=== PATIENT | female | born 1945 | race Asian ===

== ENCOUNTER 2019-08-11 20:50 | Inpatient (IN) | payer OTHER, MEDICAID ==
[~2019-08-11] VITALS: Ht 142.2 cm; Wt 34.9 kg
--- NOTE | 2019-08-11 20:51 | NUR ---
Note fidleia in ED - 08/11/19 at 2113 by JULIOCESAR Placed in room 5 . Placed on monitor car operator, blood pressure machine and pulse oximeter. To gown for exam. Side rails up. Report given to JOSE LLAMAS.
[2019-08-11 20:58] VITALS: BP_SYST 101
--- NOTE | 2019-08-11 20:58 | NUR ---
Placed in room 5 . Placed on drafter electronic, blood pressure machine and pulse oximeter. To gown for exam. Side rails up.
--- NOTE | 2019-08-11 20:59 | NUR ---
patient is greek speaking per EMT report. patient has no labored breathing and lungs are CTA bilaterally. patient shows no signs of current distress. patient has a stable gate. 3 IV attempts. patients current LOC is x1.
--- NOTE | 2019-08-11 20:59 | NUR ---
Pt was BIB BLS from [facility] c/o right rib pain and left knee pain s/p fall. Pt was found on right side at SNF by facility. Unknown KO. Pt denies N/V, shortness of breath, or chest pain, per EMT. Per EMT, pt is able to ambulate with assistance. Per EMT, patient is paraguayan speaking only. No other injuries/complaints per patient or noted.
[2019-08-11] MEDS ORDERED: DIPH-TET-PERTUS Vaccine 0.5 ML VIAL (ADACEL) I.M. ONE (21:00)
--- NOTE | 2019-08-11 21:00 | NUR ---
ER Dr. Charles at bedside examining patient.
[2019-08-11] MEDS ORDERED: MOM PO (21:11)
[2019-08-11] MEDS ORDERED: MULT-1089 PO (21:11)
[2019-08-11] MEDS ORDERED: DONE10TA44 PO (21:11)
[2019-08-11] MEDS ORDERED: ACET-2634 PO (21:11)
[2019-08-11] MEDS ORDERED: CAT.1 PO (21:11)
[2019-08-11] MEDS ORDERED: MEMA5TAB PO (21:11)
[2019-08-11] MEDS ORDERED: GLUXR500 PO (21:11)
[2019-08-11] MEDS ORDERED: ACET325T53 PO (21:11)
[2019-08-11] MEDS ORDERED: MAG360OR83 PO (21:11)
[2019-08-11] MEDS ORDERED: BISA5TAB10 RC (21:11)
[2019-08-11] MEDS ORDERED: TRAZ-250 PO (21:11)
[2019-08-11] MEDS ORDERED: FLEETMO RC (21:11)
[2019-08-11] MEDS ORDERED: MECL-110 PO (21:11)
[2019-08-11] MEDS ORDERED: DOCU-144 PO (21:11)
--- NOTE | 2019-08-11 21:11 | NUR ---
Medication reconciliation completed with information provided by [facility]. Any prior medication reconciliation on file was reviewed and corrected.
--- NOTE | 2019-08-11 21:14 | NUR ---
Pt stated in polish feeling dizzy and then hitting her head on the side of the wall, no KO. Provided translation into albanian for Dr. Charles.
[2019-08-11 21:22] LABS: BILIRUBIN,URINE NEGATIVE (NEGATIVE); CLARITY/URINE HAZY (CLEAR); COLOR,URINE YELLOW (YELLOW); GLUCOSE,URINE NEGATIVE (NEGATIVE); KETONES,URINE TRACE (NEGATIVE); LEUKOCYTE ESTERASE ,URINE 2+ (NEGATIVE); NITRITE, URINE NEGATIVE (NEGATIVE); PH,URINE 5.5 (5.0-8.0); PROTEIN URINE 1+ (NEGATIVE); UROBILINOGEN,URINE 0.2 (0.2-1.0)
[2019-08-11 21:26] LABS: BASOPHILS # (AUTO) 0.1 K/uL (0.0-0.2); BASOPHILS % (AUTO) 1.1 % (0.0-2.0); EOSINOPHILS # (AUTO) 0.1 K/uL (0.0-0.4); EOSINOPHILS % (AUTO) 1.3 % (0.0-4.0); HEMATOCRIT 38.2 % (36-48); HEMOGLOBIN 12.6 g/dL (12.0-16.0); LYMPHOCYTES # (AUTO) 3.1 K/uL (1.0-5.5); LYMPHOCYTES % (AUTO) 40.5 % (20.5-51.5); MEAN CORPUSCULAR HEMOGLOBIN 31 pg (27-31); MEAN CORPUSCULAR HGB CONC 33 % (32-36); MEAN CORPUSCULAR VOLUME 93 fL (79.0-98.0); MONOCYTES # (AUTO) 0.5 K/uL (0.0-1.0); MONOCYTES % (AUTO) 7.2 % (1.7-9.3); NEUTROPHILS # (AUTO) 3.8 K/uL (1.8-7.7); NEUTROPHILS % (AUTO) 49.9 % (40.0-70.0); PLATELET COUNT (AUTO) 176 K/uL (130-430); RED BLOOD CELL COUNT(AUTO) 4.12 MIL/uL (4.2-6.2); RED CELL DISTRIBUTION WIDTH 13.3 % (9.0-15.0); WHITE BLOOD COUNT (AUTO) 7.7 K/uL (4.8-10.8)
--- NOTE | 2019-08-11 21:28 | NUR ---
patient denies shortness of breath and chest pain. Per patient, "I'm hungry can I eat?" Dr. Charles aware.
[2019-08-11 21:34] LABS: BLOOD, URINE TRACE (NEGATIVE)
[2019-08-11 21:35] LABS: ANION GAP 6 (5-15); CALCIUM 9.5 mg/dL (8.4-11.0); CHLORIDE 107 mmol/L (98-107); CREATININE 0.96 mg/dL (0.55-1.30); GLUCOSE 91 mg/dL (70-99); POTASSIUM 4.2 mmol/L (3.5-5.1); SODIUM SERUM 141 mmol/L (136-145); UREA NITROGEN, BLOOD 20 mg/dL (8-21)
--- NOTE | 2019-08-11 21:35 | NUR ---
Patient went to CT in stable condition
[2019-08-11 21:36] LABS: RBC,URINE 0-3 /HPF (0-3)
[2019-08-11 21:37] LABS: INR 1.3 (0.8-1.2); PROTHROMBIN TIME 12.8 SECS (9.5-12.5)
[2019-08-11 21:37] LABS: BACTERIA,URINE MODERATE /HPF (None Seen); MUCUS,URINE None Seen /LPF (None Seen); WBC,URINE 80-100 /HPF (0-3)
--- NOTE | 2019-08-11 21:38 | NUR ---
Dr. Charles speaking with ER Dr. Pandya from [facility] in regards to patient's EKG.
[2019-08-11 21:41] LABS: ALANINE AMINOTRANSFERASE 17 U/L (12-78); ALBUMIN 3.8 g/dL (3.4-4.8); ASPARTATE AMINOTRANSFERASE 22 U/L (10-37); TOTAL BILIRUBIN 0.4 mg/dL (0.0-1.0)
[2019-08-11] MEDS ORDERED: cefTRIAXone 1 GM in D5W 50 ML IV ONE (22:00)
[2019-08-11] MEDS ORDERED: cefTRIAXone 1 GM VIAL ONE (22:18)
--- NOTE | 2019-08-11 22:35 | NUR ---
Dr. Charles speaking with Dr. Ochoa in regards to admitting patient.
--- NOTE | 2019-08-11 22:54 | NUR ---
Spoke with Cal, son, and updated him that patient will be admitted.
--- NOTE | 2019-08-11 23:01 | NUR ---
Transfer to [facility]. IV present no sign or symptom of infiltration.
--- NOTE | 2019-08-11 23:01 | NUR ---
Patient will be admitted to care of Dr. Richardson. Admitted to Med Surg unit. Will go to room 104 B. Belongings list completed. Summary report printed. Report will be given at bedside.
--- NOTE | 2019-08-11 23:20 | NUR ---
ADMISSION NOTE Received patient from ER via [facility], received report from JOSE LLAMAS. Patient admitted with diagnosis of POSSIBLE SYNCOPE / UTI. Patient oriented to hospital routine, call light, toileting and safety-patient verbalized understanding.
[2019-08-11 23:23] VITALS: BP_SYST 136
--- NOTE | 2019-08-11 23:44 | NUR ---
CONSULTATION PAGED/CALLED Reason for Consultation: ID Person Who was Notified: JANA Consulting Physician: DAVEY RENTERIA Education Associate Specialty: ID Ordering Physician: DR. BLANCO
[2019-08-12] MEDS ORDERED: NACL 0.9% 500 ML IV ONE
--- NOTE | 2019-08-12 00:11 | NUR ---
Paged Dr. Richardson
--- NOTE | 2019-08-12 00:12 | NUR ---
AMBULATED TO RESTROOM PT AMBULATED TO RESTROOM WITH NURSE ASSIST. GAIT WAS NOTED TO BE WEAK. PT HAD BM. PT ASSISTED BACK TO BED. NO S/S OF DISTRESS. PT TOLERATED ACTIVITY WELL. SAFETY MAINTAINED. WILL MONITOR.
[2019-08-12 01:40] VITALS: BP_SYST 136
--- NOTE | 2019-08-12 02:45 | NUR ---
SPOKE TO DR. BLANCO REGARDING PT'S RESTLESSNESS. NEW ORDER RECEIVED. WILL CARRY OUT.
[2019-08-12] MEDS ORDERED: LORazepam 2 MG/ML VIAL IVP PRN (03:00)
--- NOTE | 2019-08-12 04:05 | NUR ---
RN NOTE: PT CALM AND RESTING IN BED. NO S/S OF ACUTE DISTRESS. SAFETY PRECAUTIONS IN PLACE. WILL MONITOR.
--- NOTE | 2019-08-12 06:41 | NUR ---
CLOSING NOTE PT RESTING IN BED WITH EYES CLOSED. VISIBLE SYMMETRICAL RISE AND FALL OF CHEST TO ROOM AIR, BREATHING IS UNLABORED. NO S/S OF ACUTE DISTRESS. SAFETY PRECAUTIONS ARE IN PLACE. ALL NEEDS MET DURING SHIFT. WILL ENDORSE CARE TO DAY SHIFT RN.
[2019-08-12 06:51] LABS: BASOPHILS % (AUTO) 0.7 % (0.0-2.0); EOSINOPHILS # (AUTO) 0.1 K/uL (0.0-0.4); EOSINOPHILS % (AUTO) 1.2 % (0.0-4.0); HEMATOCRIT 36.7 % (36-48); HEMOGLOBIN 12.2 g/dL (12.0-16.0); LYMPHOCYTES # (AUTO) 1.6 K/uL (1.0-5.5); LYMPHOCYTES % (AUTO) 27.8 % (20.5-51.5); MEAN CORPUSCULAR HEMOGLOBIN 30 pg (27-31); MEAN CORPUSCULAR HGB CONC 33 % (32-36); MEAN CORPUSCULAR VOLUME 91 fL (79.0-98.0); MONOCYTES # (AUTO) 0.5 K/uL (0.0-1.0); NEUTROPHILS # (AUTO) 3.5 K/uL (1.8-7.7); NEUTROPHILS % (AUTO) 62.3 % (40.0-70.0); PLATELET COUNT (AUTO) 154 K/uL (130-430); RED BLOOD CELL COUNT(AUTO) 4.02 MIL/uL (4.2-6.2); RED CELL DISTRIBUTION WIDTH 13.5 % (9.0-15.0); WHITE BLOOD COUNT (AUTO) 5.7 K/uL (4.8-10.8)
[2019-08-12 07:14] LABS: ALANINE AMINOTRANSFERASE 17 U/L (12-78); ALBUMIN 3.3 g/dL (3.4-4.8); ANION GAP 1 (5-15); ASPARTATE AMINOTRANSFERASE 16 U/L (10-37); CALCIUM 8.9 mg/dL (8.4-11.0); CHLORIDE 105 mmol/L (98-107); CREATININE 0.63 mg/dL (0.55-1.30); GLUCOSE 84 mg/dL (70-99); POTASSIUM 3.5 mmol/L (3.5-5.1); SODIUM SERUM 135 mmol/L (136-145); TOTAL BILIRUBIN 0.6 mg/dL (0.0-1.0)
[2019-08-12 07:45] LABS: UREA NITROGEN, BLOOD 16 mg/dL (8-21)
[2019-08-12 07:46] VITALS: BP_SYST 121
--- NOTE | 2019-08-12 07:58 | NUR ---
OPENING NOTES, RECEIVED PT IN BED, PT IS AAOX1, NO S/S OF PAIN NO SOB, NO RESP DISTRESS. PT IS AFEBRILE. SALINE LOCK INTACT AND PATENT. SAFETY PRECAUTION IN PLACE. CALL LIGHT IN REACH. BED IN LOW POSITION. BED ALARM ON. ENCOURAGED PATIENT TO CALL FOR ASSIST AND PAIN MEDS AND NOT TO GET OUT OF BED ALONE. WILL CONT TO MONITOR.
[2019-08-12] MEDS ORDERED: cefTRIAXone 1 GM in D5W 50 ML IV SCH (09:00)
--- NOTE | 2019-08-12 10:29 | NUR ---
PATIENT IN BED, PT SLEEPING COMFORTABLY, BREATHING NOTICEABLE, FAMILY AT BEDSIDE.
[2019-08-12 11:15] VITALS: BP_SYST 136
--- NOTE | 2019-08-12 12:00 | NUR ---
pt getting out of bed 2x now, pt assisted to bs commode 2x on both occasion. remided pt to call for assist and do not get out of bed by herself.
[2019-08-12 15:22] VITALS: BP_SYST 96
--- NOTE | 2019-08-12 15:43 | NUR ---
PT IN BED, RESTING COMFORTABLY. PT ATTEMPTED TO GET OUT OF BED AGAIN AND WAS ASSISTED TO BS COMMODE.
--- NOTE | 2019-08-12 17:24 | NUR ---
pt in bed , resting comfortably. pt attempted to climb out of bed 4x today. will move to another room with sitter.
--- NOTE | 2019-08-12 18:38 | NUR ---
CLOSING NOTES, PT HAS BEEN STABLE THE WHOLE SHIFT. PT IS CONFUSED, AOX1, ATTEMPTED TO GET OUT OF BED 4X, ASSISTED WITH MEALS. PT MOVED TO RM 120C TO BE WITH A DO PATIENT. WILL ENDORSE TO NIGHT RN.
--- NOTE | 2019-08-12 19:39 | NUR ---
Received patient, Awake and returning to bed from [facility] in [facility]. No s/sx of distress noted. She is AOx1, to name and unable to recall -only knows day and month, not year born. She spoke in Amharic. IV to Rt hand is SL. Bed is locked to lowest position, side rails up 3x and call light w/in reach. Unable to set alarm due to malfunction-when turned on it alarms and indicates low weight, will need to reset weight. Presently I'm in room with patient and will remain in room with her and two other patient's during shift.
[2019-08-12 20:00] VITALS: BP_SYST 103
--- NOTE | 2019-08-12 20:45 | NUR ---
Awake Patient is awake and asking if son or daughter can come take her home. I explained that she is in the hospital and the doctor would need to discharge her, he would need to say she is ok to go home. She agrees momentarily and again repeats the question.
--- NOTE | 2019-08-12 21:41 | NUR ---
Resting Patient is resting calmly and quietly. She is in and out of sleep. Safety precautions maintained.
--- NOTE | 2019-08-13 00:18 | NUR ---
Rounds Patient encouraged to repositioned and assisted to side posture. No sign of distress, eyes closed. Will monitor.
[2019-08-13 00:20] VITALS: BP_SYST 114
--- NOTE | 2019-08-13 02:15 | NUR ---
Ambulate / void Patient OOB with assistance of nurse maintenance assistant to the restroom, voided and returned to bed.Bed was zeroed and bed alarm on. Patient resting, non-labored breathing.
--- NOTE | 2019-08-13 03:08 | NUR ---
Ambulate Once again, patient is OOB. She was restless, removing the covers and trying to get out of bed. She was assisted to restroom and returned to bed. Bed alarm on and I continue in room at bedside monitoring patient.
--- NOTE | 2019-08-13 03:42 | NUR ---
Awake, OOB Patient is awake and kept trying to get out of bed. Once again she was taken to restroom. She returned to bed and presently she is covered and resting w/ eyes closed.
--- NOTE | 2019-08-13 05:22 | NUR ---
IV START Patient pulled out IV on right hand. New IV was started# 22 gauge angiocath placed to RFA. Use of asceptic technique. Opsite placed over site. Blood return noted. Flushed with 10 cc of normal saline. No evidence of infiltration noted. Patient tolerated .
--- NOTE | 2019-08-13 06:43 | NUR ---
CLOSING NOTE Patient resting w/ eyes closed, no sign of distress. IV to RFA is SL. Bed is locked to lowest position, side rails up 3x and call light w/in reach. Bed alarm on. Direct observer in room with patient.
--- NOTE | 2019-08-13 07:07 | NUR ---
Nutrition Update Chaitanya Scale 16 noted. Pt admitted for Possible Syncope and UTI Diet: [facility] BMI: 17.3 kg/m2 RD to follow per nutrition care standards.
[2019-08-13 07:22] VITALS: BP_SYST 119
--- NOTE | 2019-08-13 07:40 | NUR ---
OPENING NOTES: RECEIVED PATIENT FROM CUSTODIAL ENGINEER NURSE. PATIENT IS AWAKE AND ALERT x1. PATIENT IS VERY CONFUSED AND TRYING TO GET OUT OF BED. IV SITE IS PATENT WITH NO SIGNS OF INFILTRATION. NO SIGNS OF DISTRESS OR SHORTNESS OF BREATH NOTED. PATIENT IS TOLERATING OXYGEN AT ROOM AIR. SAFETY AND FALL PRECAUTIONS ARE IN PLACE. BED LOCKED IN LOWEST POSITION WITH CALL LIGHT IN REACH. WILL CONTINUE TO MONITOR PATIENT FOR ANY CHANGES.
--- NOTE | 2019-08-13 10:00 | NUR ---
MD ROUNDS: DR. BLANCO MAKING ROUNDS. MADE AWARE OF PATIENT'S CONDITION. NEW ORDERS RECEIVED.
--- NOTE | 2019-08-13 10:05 | NUR ---
CONSULT [facility]. DR. JOHNSON CALLED SPOKE TO ROCAEL DIALED [phone] BLANCO
--- NOTE | 2019-08-13 10:06 | NUR ---
CONSULT PSYCH. DR. GRIFFITH CALLED SPOKE TO LUIS DIALED [phone] BLANCO FACE SHEET FAXED
[2019-08-13] MEDS: cefTRIAXone 1 GM in D5W 50 ML IV SCH (10:15)
[2019-08-13] MEDS ORDERED: BISACODYL 5 MG TABLET.DR (DULCOLAX) PO PRN (10:15)
[2019-08-13] MEDS ORDERED: MILK OF MAGNESIA 30 ML UDC PO PRN (10:15)
[2019-08-13] MEDS ORDERED: ACETAMINOPHEN 500 MG TABLET PO PRN (10:15)
[2019-08-13] MEDS ORDERED: MECLIZINE HCL 25 MG TABLET (ANITVERT) PO PRN (10:15)
[2019-08-13] MEDS ORDERED: SODIUM PHOSPHATE,MONO-DIBASIC 133 ML ENEMA RC PRN (10:15)
[2019-08-13] MEDS ORDERED: cloNIDine HCL 0.1 MG TABLET PO PRN (10:15)
--- NOTE | 2019-08-13 10:15 | NUR ---
RN ROUNDS: PATIENT IS AWAKE AND ALERT x1 IN BED. PATIENT DENIES ANY PAIN AT THE MOMENT. NO SIGNS OF DISTRESS OR SHORTNESS OF BREATH NOTED. PATIENT IN STABLE CONDITION. WILL CONTINUE TO MONITOR PATIENT FOR ANY CHANGES.
[2019-08-13] MEDS ORDERED: GLU500 PO (10:54)
[2019-08-13] MEDS ORDERED: BISA10SU61 RC (10:54)
[2019-08-13] MEDS ORDERED: NA P133E41 RC (10:54)
[2019-08-13] MEDS ORDERED: BISACODYL 10 MG/SUPPOSITORY RC PRN (10:55)
--- NOTE | 2019-08-13 11:14 | NUR ---
Dietitian Recommendations *Recommend [facility] diet w/ Glucerna TID. (ONS will provide additional 660 kcal and 30 gm protein daily) *Consider Megace to stimulate appetite. *Encourage pt to increase PO intake. Please see Nutritional Assessment for details. ADDIS BILL
[2019-08-13 11:25] VITALS: BP_SYST 107
--- NOTE | 2019-08-13 12:20 | NUR ---
RN ROUNDS: PATIENT IS AWAKE AND ALERT x1 IN BED. PATIENT WATCHING TELEVISION WHILE LAYING DOWN. PATIENT DENIES ANY PAIN AT THE MOMENT. NO SIGNS OF DISTRESS OR SHORTNESS OF BREATH NOTED. PATIENT IN STABLE CONDITION. WILL CONTINUE TO MONITOR PATIENT FOR ANY CHANGES.
[2019-08-13 13:00] VITALS: BP_SYST 118
--- NOTE | 2019-08-13 14:16 | NUR ---
RN ROUNDS: PATIENT IS AWAKE AND ALERT x1. PATIENT SITTING UP IN BED WATCHING TELEVISION. PATIENT DENIES ANY PAIN. NO SIGNS OF DISTRESS OR SHORTNESS OF BREATH NOTED. PATIENT IN STABLE CONDITION. WILL CONTINUE TO MONITOR PATIENT FOR ANY CHANGES.
--- NOTE | 2019-08-13 16:15 | NUR ---
RN ROUNDS: PATIENT IS AWAKE IN BED AND TRYING TO GET UP. NO SIGNS OF DISTRESS OR SHORTNESS OF BREATH NOTED. PATIENT DENIES ANY PAIN. PATIENT IN STABLE CONDITION. WILL CONTINUE TO MONITOR PATIENT FOR ANY CHANGES.
[2019-08-13 17:15] VITALS: BP_SYST 127
[2019-08-13] MEDS: metFORMIN HCL 500 MG TABLET PO SCH (18:17)
--- NOTE | 2019-08-13 18:18 | NUR ---
ATIVAN GIVEN: PATIENT WAS VERY ANXIOUS AND TRYING TO GET OUT OF BED. PRN ATIVAN 1MG WAS GIVEN. WILL CONTINUE TO MONITOR PATIENT FOR ANY CHANGES.
--- NOTE | 2019-08-13 18:25 | NUR ---
new iv insertion rt hand iv #22 infiltrated. new iv line started on left hand #22. with good blood return. flushed well. pt tolerated well. not in acute distress. will continue to monitor
--- NOTE | 2019-08-13 18:45 | NUR ---
CLOSING NOTES: PATIENT IS AWAKE AND ALERT x1. PATIENT IS VERY CONFUSED AND TRYING TO GET OUT OF BED. IV SITE IS PATENT WITH NO SIGNS OF INFILTRATION. NO SIGNS OF DISTRESS OR SHORTNESS OF BREATH NOTED. PATIENT IS TOLERATING OXYGEN AT ROOM AIR. SAFETY AND FALL PRECAUTIONS ARE IN PLACE. BED LOCKED IN LOWEST POSITION WITH CALL LIGHT IN REACH. WILL ENDORSE PATIENT TO ONCOMING REHABILITATION TECHNICIAN NURSE.
--- NOTE | 2019-08-13 19:30 | NUR ---
Opening notes Received report. Patient is resting in bed. No signs of distress noted. Breathing even and unlabored. IV patent and intact, no signs of infiltration noted. Patient refuses bilateral SCDs. Call light with the patient. Safety precautions in place.
[2019-08-13 19:56] VITALS: BP_SYST 115
--- NOTE | 2019-08-13 20:56 | NUR ---
Resting Patient resting in bed. Talking to self. Patient tries to get up, but is able to be reoriented. No signs of distress noted. Breathing even and unlabored. Call light with the patient. Safety precautions in place.
[2019-08-13] MEDS ORDERED: traZODone HCL 50 MG TABLET (DESYREL) PO SCH (21:00)
--- NOTE | 2019-08-13 21:12 | NUR ---
PAGENaz Zabala[facility] exchanged [phone] Spoke to Trena
[2019-08-13] MEDS: MEMANTINE HCL 5 MG TABLET PO SCH (21:47)
[2019-08-13] MEDS: DOCUSATE SODIUM 100 MG CAPSULE PO SCH (21:47)
--- NOTE | 2019-08-13 21:47 | NUR ---
Medications given. Educated the action and side effects of medications. Patient tolerated well. No signs of allergic reaction noted. Patient continues to try to get out of bed. Patient needs reorienting, and is forgetful. Hygiene care provided with assist from MANAGER CREDIT COLLECTIONS. Patient repositioned. Call light with the patient. Safety precautions in place.
[2019-08-13] MEDS ORDERED: INSULIN REGULAR, HUMAN 100 UNITS/ML, 10 ML VIAL (humuLIN R) SUBCUT PRN (22:15)
--- NOTE | 2019-08-14 00:14 | NUR ---
Sleeping Patient intermittently sleeps. Patient tries to get out of bed and is easily reoriented. Provided patient with snacks and water as requested. No other needs. Call light with the patient. Safety precautions in place.
[2019-08-14 01:16] VITALS: BP_SYST 110
--- NOTE | 2019-08-14 02:24 | NUR ---
Sleeping Patient sleeping and snoring. No signs of distress noted. Breathing even and unlabored. Call light with the patient. Safety precautions in place.
--- NOTE | 2019-08-14 04:30 | NUR ---
Sleeping No signs of distress noted. Breathing even and unlabored. Patient occasionally talks in sleep. No needs at this time. Call light with the patient. Safety precautions in place.
--- NOTE | 2019-08-14 06:21 | NUR ---
Closing notes Patient resting in bed, talking to self. No signs of distress noted. Breathing even and unlabored. IV patent and intact, no signs of infiltration noted. Accucheck 86. No insulin necessary. Encouraged patient to eat breakfast, patient verbalized understanding. All needs met throughout the shift. Call light with the patient. Safety precautions in place. Will endorse care to day shift RN. Addendum: 08/14/19 at 0657 by Mayi Christianson RN Patient assisted to bathroom with moderate assistance, patient is unsteady. Patient voided. Patient provided self care. Patient assisted back into bed. No signs of distress noted. Breathing even and unlabored. Call light with the patient, safety precautions in place.
--- NOTE | 2019-08-14 07:30 | NUR ---
Opening note Patient resting in bed at this time, A/Ox1, no complaints of pain. Iv patent, intact. No bleeding noted. No SOB. On safety and aspiration precautions, Hob kept elevated. Bed alarm on, bed in lowest position, 3 side rails up. Call light within reach. Patient in stable condition. Will continue to monitor.
[2019-08-14 08:00] VITALS: BP_SYST 102
[2019-08-14] MEDS ORDERED: MULTIVITAMINS TAB 1 TABLET PO SCH (09:00)
--- NOTE | 2019-08-14 09:00 | NUR ---
Medications All morning medications given as ordered. No adverse side effects noted. No nausea, no vomiting noted. Patient in stable condition.
[2019-08-14] MEDS: metFORMIN HCL 500 MG TABLET PO SCH (09:11)
[2019-08-14] MEDS: MEMANTINE HCL 5 MG TABLET PO SCH (09:11)
[2019-08-14] MEDS: DOCUSATE SODIUM 100 MG CAPSULE PO SCH (09:11)
[2019-08-14] MEDS: cefTRIAXone 1 GM in D5W 50 ML IV SCH (09:12)
--- NOTE | 2019-08-14 11:01 | NUR ---
Bathroom rounds Patient ambulated to the restroom and back to bed with assistance, unsteady gait. No complaints of pain. Patient resting in bed at this time.
[2019-08-14 12:37] VITALS: BP_SYST 109
--- NOTE | 2019-08-14 13:16 | NUR ---
Discharge Planning: DCP faxed pt referral to [facility] (f [phone] p [phone]) DCP to follow up.
--- NOTE | 2019-08-14 13:30 | NUR ---
Lunch Patient sitting up in bed at this time, eating lunch. Tolerating well. No nausea, no vomiting noted. No complaints of pain. Patient in stable condition.
[2019-08-14] MEDS ORDERED: NITR-85 PO (14:17)
[2019-08-14 14:24] VITALS: BP_SYST 102
--- NOTE | 2019-08-14 14:25 | NUR ---
DC PLANNING: JUAN PABLO SPOKE WITH BRYON (SLAG MOTOR OPERATOR AT [facility]), PATIENT IS ACCEPTED BACK AND ROOM NUMBER IS 5 A. TRANSPORTATION HAS BEEN SETUP WITH [facility] @ AND COMPRESSOR OPERATOR PORTABLE TIME IS AT 4PM. JUAN PABLO SPOKE WITH PATIENT SON (COREY) AND MADE AWARE OF THE DISCHARGE. PT SON AGREED TO THE DISCHARGE. CM MADE PATIENT'S NURSE AWARE.
--- NOTE | 2019-08-14 15:45 | NUR ---
PT TRANSFERRED Report given to Delores at [facility]. Transfer packet with Transfer Orders and Medication Reconciliation form given to EMT with report. Exitcare provided. [facility] ID band removed, replaced with ID band with pt's name and . IV catheter removed, intact and dressing applied, no active bleeding. All belongings sent with patient. Patient left floor via gurney escorted by EMT in no distress.
[2019-08-14 16:45] VITALS: BP_SYST 121
[2019-08-14] MEDS ORDERED: DONEPEZIL HCL 5 MG TABLET (ARICEPT) PO SCH (21:00)
== END 2019-08-14 15:45 | DRG 689 ==
LOC: SED 20:50 → SMU 22:45
PROVIDERS: ADMIT Internal Medicine; ATTEND Internal Medicine
DX: N39.0 Urinary tract infection, site not specified (principal); G93.41 Metabolic encephalopathy; S00.81XA Abrasion of other part of head, initial encounter; M81.0 Age-related osteoporosis without current pathological fracture; E11.9 Type 2 diabetes mellitus without complications; F03.90 Unspecified dementia, unspecified severity, without behavioral disturbance, psychotic disturbance, mood disturbance, and anxiety; F20.9 Schizophrenia, unspecified; I10 Essential (primary) hypertension; S80.212A Abrasion, left knee, initial encounter; M19.90 Unspecified osteoarthritis, unspecified site; W18.39XA Other fall on same level, initial encounter; Y93.89 Activity, other specified; Z79.899 Other long term (current) drug therapy; Y92.89 Other specified places as the place of occurrence of the external cause; Y99.8 Other external cause status
CPT/HCPCS: 36415; 70450-TC; 71045; 71110; 72125-TC; 73564; 76770; 80053; 81000-TC; 82962; 83605; 84484; 85025; 85610-TC; 85730-TC; 87040-TC; 87081; 87086; 93005; 93306; 96361; 96365; 99285; J0696; J1815; J2060; J7060